=== PATIENT | female | born 1995 | race Caucasian/White ===

== ENCOUNTER 2017-12-12 23:08 | Emergency (ER) | payer MEDICAID ==
[~2017-12-12] VITALS: Ht 162.6 cm; Wt 100.0 kg
[~2017-12-12 23:08] MED LIST: UNABLE TO ASSESS
[2017-12-13] MEDS ORDERED: DiphenhydrAMINE HCL 25 MG CAPSULE PO ONE (04:00)
[2017-12-13 04:25] VITALS: BP 136/74
== END 2017-12-13 04:26 | disposition home or self-care (01) ==
LOC: EMS 23:09
DX: T78.40XA Allergy, unspecified, initial encounter (principal); B86 Scabies; X58.XXXA Exposure to other specified factors, initial encounter
CPT/HCPCS: 99283